=== PATIENT | female | born 1995 | race Caucasian/White ===

== ENCOUNTER 2019-05-18 12:00 | Emergency (ER) | payer OTHER ==
[2019-05-18] MEDS ORDERED: Sodium Chloride 0.9% 1,000 ML IV ONE (12:39)
[2019-05-18] MEDS ORDERED: fentaNYL 100 MCG/2 ML SDV IVPUSH ONE (12:39)
[2019-05-18 13:18] LABS: CHLORIDE,CL 105 mmol/L (98-107); SODIUM,NA 139 mmol/L (136-145)
--- NOTE | 2019-05-18 13:40 | EDM.PDOC ---
ED HPI GENERAL MEDICAL PROBLEM - General Chief Complaint: Abdominal Pain Stated Complaint: STOMACH PAIN Time Seen by Provider: 05/18/19 12:07 Source of Information: Reports: Patient History Limitations: Reports: No Limitations - History of Present Illness INITIAL COMMENTS - FREE TEXT/NARRATIVE: Presents reporting a four-day history of diarrhea and stomach cramps. She states that the diarrhea is yellow watery with chunks. She denies any ill contacts, foreign travel, camping trips and so forth. No unusual foods. She also complains of quite a bit of tenderness in the right upper quadrant and epigastric area. She has had an appendectomy. She is otherwise healthy without chronic medical problems. She is sexually active but has the Nexplanon. No dysuria. she took some ibuprofen for the cramping. - Related Data Allergies Allergy/AdvReac Type Severity Reaction Status Date / Time No Known Allergies Allergy Verified 05/18/19 12:10 Home Meds: Home Meds . 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 History: 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 Neurological History: 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 Psychiatric History: Reports: Anxiety, Depression Endocrine/Metabolic History: 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 Hematologic History: 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 Immunologic History: 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 Oncologic (Cancer) History: 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 Dermatologic History: 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 - Past Surgical History Head Surgeries/Procedures: 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 HEENT Surgical History: 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 Cardiovascular Surgical History: 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 Respiratory Surgical History: 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 GI Surgical History: Reports: Appendectomy Female Surgical History: 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 Endocrine Surgical History: 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 Neurological Surgical History: 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 Surgical History: 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 Oncologic Surgical History: 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 Dermatological Surgical History: 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 Social & Family History - Family History Family Medical History: Noncontributory - Tobacco Use Smoking Status *Q: Current Every Day Smoker Years of Tobacco use: 1 Packs/Tins Daily: 0.5 - Caffeine Use Caffeine Use: Reports: Coffee - Recreational Drug Use Recreational Drug Use: No ED ROS GENERAL - Review of Systems Review Of Systems: ROS reveals no pertinent complaints other than HPI. ED EXAM, GI/ABD - Physical Exam Exam: See Below Exam Limited By: No Limitations General Appearance: Alert, No Apparent Distress Nose: Normal Inspection Throat/Mouth: Normal Inspection Head: Atraumatic, Normocephalic Neck: Normal Inspection Respiratory/Chest: No Respiratory Distress, Lungs Clear, Normal Breath Sounds Cardiovascular: Normal Peripheral Pulses, Regular Rate, Rhythm, No Edema GI/Abdominal Exam: Soft, No Distention, Guarding, Tender (Exquisitely tender in the right upper quadrant and epigastric area as well as the upper neptali- umbilical area) Back Exam: Normal Inspection Extremities: Normal Inspection Neurological: Alert, Oriented Psychiatric: Normal Affect, Normal Mood Skin Exam: Warm, Dry, Intact, Normal Color, No Rash Lymphatic: No Adenopathy Course - Vital Signs Last Recorded V/S: Last Vital Signs Temp 35.6 C 05/18/19 12:11 Pulse 90 05/18/19 12:11 Resp 18 05/18/19 12:11 BP 189/87 H 05/18/19 12:11 Pulse Ox 96 05/18/19 12:11 - Orders/Labs/Meds Labs: Laboratory Tests 05/18/19 05/18/19 05/18/19 Range/Units 12:14 12:47 12:47 WBC 8.11 (4.0-11.0) K/uL RBC 4.76 (4.30-5.90) M/uL Hgb 14.8 (12.0-16.0) g/dL Hct 44.6 (36.0-46.0) % MCV 93.7 (80.0-98.0) fL MCH 31.1 (27.0-32.0) pg MCHC 33.2 (31.0-37.0) g/dL RDW Std Deviation 46.8 (28.0-62.0) fl RDW Coeff of Mar 14 (11.0-15.0) % Plt Count 299 (150-400) K/uL MPV 10.60 (7.40-12.00) fL Neut % (Auto) 71.9 (48.0-80.0) % Lymph % (Auto) 20.1 (16.0-40.0) % [place] % (Auto) 6.9 (0.0-15.0) % Eos % (Auto) 0.6 (0.0-7.0) % Baso % (Auto) 0.5 (0.0-1.5) % Neut # (Auto) 5.8 H (1.4-5.7) K/uL Lymph # (Auto) 1.6 (0.6-2.4) K/uL [place] # (Auto) 0.6 (0.0-0.8) K/uL Eos # (Auto) 0.1 (0.0-0.7) K/uL Baso # (Auto) 0.0 (0.0-0.1) K/uL Nucleated RBC % 0.0 /100WBC Nucleated RBCs # 0 K/uL Sodium 139 (136-145) mmol/L Potassium 3.9 (3.5-5.1) mmol/L Chloride 105 (98-107) mmol/L Carbon Dioxide 22.5 (21.0-32.0) mmol/L BUN 9 (7.0-18.0) mg/dL Creatinine 0.8 (0.6-1.0) mg/dL Est Cr Clr Drug Dosing 108.17 mL/min Estimated GFR (MDRD) > 60.0 ml/min Glucose 99 (74-106) mg/dL Calcium 9.1 (8.5-10.1) mg/dL Total Bilirubin 0.5 (0.2-1.0) mg/dL AST 17 (15-37) IU/L ALT 18 (14-63) IU/L Alkaline Phosphatase 82 (46-116) U/L Total Protein 7.9 (6.4-8.2) g/dL Albumin 4.3 (3.4-5.0) g/dL Globulin 3.6 (2.6-4.0) g/dL Albumin/Globulin Ratio 1.2 (0.9-1.6) Urine Color YELLOW Urine Appearance CLEAR Urine pH 5.5 (5.0-8.0) Ur Specific [place] 1.025 (1.001-1.035) Urine Protein NEGATIVE (NEGATIVE) mg/dL Urine Glucose (UA) NEGATIVE (NEGATIVE) mg/dL Urine Ketones NEGATIVE (NEGATIVE) mg/dL Urine Occult Blood NEGATIVE (NEGATIVE) Urine Nitrite NEGATIVE (NEGATIVE) Urine Bilirubin NEGATIVE (NEGATIVE) Urine Urobilinogen 0.2 (<2.0) EU/dL Ur Leukocyte Esterase NEGATIVE (NEGATIVE) Urine RBC 0-2 (0-2/HPF) Urine WBC 0-2 (0-5/HPF) Ur Epithelial Cells FEW (NONE-FEW) Urine Bacteria RARE (NEGATIVE) Meds: Medications Discontinued Medications Generic Name Dose Route Start Last Admin Trade Name Kaiden PRN Reason Stop Dose Admin Fentanyl 50 mcg 05/18/19 12:39 05/18/19 12:52 Sublimaze IVPUSH 05/18/19 12:40 50 mcg ONETIME ONE Administration Sodium Chloride 1,000 mls @ 999 mls/hr 05/18/19 12:39 05/18/19 12:52 Normal Saline IV 05/18/19 13:39 999 mls/hr STAT ONE Administration Departure - Departure Time of Disposition: 14:21 Disposition: Home, Self-Care 01 Clinical Impression: Gastroenteritis - Discharge Information *PRESCRIPTION DRUG MONITORING PROGRAM REVIEWED*: Not Applicable *COPY OF PRESCRIPTION DRUG MONITORING REPORT IN PATIENT YOVANI: Not Applicable Referrals: PCP,None [Primary Care Provider] - [facility] [Outside] [facility] [Outside] Forms: ED Department Discharge Additional Instructions: 1. Imodium 2 mg tablets one after each diarrheal stool up to a total of 8 tabs per day or 16 mg. OTC 2. Follow-up in primary care. You have been given a specimen cup. If your symptoms continue please bring a stool specimen with you to your appointment 3. Drink plenty of fluids 4. Return promptly for fevers, not keeping down oral fluids, new or worsening abdominal pain
--- NOTE | 2019-05-18 13:48 | US ---
EXAMINATION: Right upper quadrant ultrasound HISTORY: Tenderness COMPARISON: None TECHNIQUE: Grayscale and color Doppler imaging obtained. FINDINGS: The visualized pancreas appears normal. The liver is normal contour and echotexture without a focal hepatic mass. Gallbladder wall thickness is normal. Right kidney measures 10.2 cm [id number] without evidence of hydronephrosis. Common bile duct measures 3 mm. IMPRESSION: Unremarkable right upper quadrant ultrasound.
== END 2019-05-18 14:50 | disposition home or self-care (01) ==
LOC: MW.ED 12:00
DX: K52.9 Noninfective gastroenteritis and colitis, unspecified (principal); F17.210 Nicotine dependence, cigarettes, uncomplicated
CPT/HCPCS: 36415; 76705; 80053; 81001; 85025; 96361; 96374; 99284; J3010; J7040

== ENCOUNTER 2021-01-30 10:47 | Emergency (ER) | payer OTHER ==
[2021-01-30] MEDS ORDERED: Ondansetron 4 MG/2 ML SDV IVPUSH STA (12:59)
--- NOTE | 2021-01-30 12:59 | EDM.PDOC ---
ED HPI GENERAL MEDICAL PROBLEM - General Chief Complaint: FAMILY THERAPIST Problem Stated Complaint: PREGGERS BLOOD IN URINE Time Seen by Provider: 01/30/21 11:04 Source of Information: Reports: Patient History Limitations: Reports: No Limitations - History of Present Illness INITIAL COMMENTS - FREE TEXT/NARRATIVE: HISTORY AND PHYSICAL: History of present illness: Patient is a 25-year-old female who presents to the with vomiting for the last 5 to 6 days. She states that she noticed a small amount of blood in her vomit. On January 26 she took 2 home tests which were positive. Her last menstrual cycle was on December 18, 2020. This is her second . Her last in August 2016 ended in a miscarriage. She denies abdominal pain, vaginal bleeding, or abnormal discharge. She states that she is extremely nauseated on and has been trying to eat crackers and follow a brat diet without success. Decreased urination, but does not notice a strong odor in her urine. She is trying to make an appointment with an FAMILY THERAPIST. Patient denies any fever, chills, headache, change in vision, syncope or near syncope. Denies any chest pain, back pain, shortness of breath or cough. Denies any abdominal pain, diarrhea, constipation or dysuria. Has not noted any blood in urine or stool. Review of systems: As per history of present illness and below otherwise all systems reviewed and negative. Past medical history: As per history of present illness and as reviewed below otherwise noncontributory. Surgical history: As per history of present illness and as reviewed below otherwise noncontributory. Social history: See social history for further information Family history: As per history of present illness and as reviewed below otherwise noncontributory. Physical exam: General: Well developed and well nourished. Alert and orientated x 3. Nontoxic in appearance and in no acute distress. Vital signs are stable and have been reviewed by me. Nursing notes were reviewed. HEENT: Atraumatic, normocephalic, pupils equal and reactive bilaterally, negative for conjunctival pallor or scleral icterus, mucous membranes moist, neck supple, nontender, trachea midline. No drooling or trismus noted. No meningeal signs. No hot potato voice noted. Lungs: Clear to auscultation bilaterally. No wheezes, rales, or rhonchi. Chest nontender. Normal work of breathing, no accessory muscles used. Heart: S1S2, regular rate and rhythm without overt murmur, gallops, or rubs. No JVD. No peripheral edema Abdomen: Soft, nondistended, nontender. Normoactive bowel sounds. Negative for masses or costovertebral tenderness. Pelvis: Stable nontender. Skin: Intact, warm, dry. No lesions or rashes noted. Hematologic: No petechiae or purpra. Mucosa appropriate color and normal nail bed color and refill. Extremities: Atraumatic, moves all extremities per self without difficulty or deficits, negative for cords or calf pain. Neurovascular unremarkable. Neuro: Awake, alert, oriented. Cranial nerves II through XII unremarkable. Cerebellum unremarkable. Motor and sensory unremarkable throughout. Exam nonfocal. Psychiatric: Mood and affect are appropriate. Normal thought process. Answering questions appropriately. Notes: *This patient was seen and evaluated during the 2019 SARS-CoV-2 novel coronavirus pandemic period. Community viral transmission is ongoing at time of this encounter and the emergency department is operating under pandemic response procedures. After discussing with the patient we will start labs fluids, and Zofran for nausea. The patient is agreeable with the plan. Her exam is normal, with patient's history will order an ultrasound. Patient does feel better post Zofran and IV fluids. The ultrasound showed a live IUP, at 6 weeks 3 days. The right ovary was visualized normal size with good flow the left ovary was not visualized. I have talked with the patient about today's findings, in addition to providing specific details for plan of care. Reassessment at the time of disposition demonstrates that the patient is in no acute distress. The patient is stable for discharge, counseling was provided and we discussed in great detail signs and symptoms that would prompt them to return to the Emergency Department. Medication, follow up and supportive care measures were reviewed and discussed. Voices understanding and is agreeable to plan of care. Denies any further questions or concerns at this time. Diagnostics: UA, , CBC, CMP, US Therapeutics: IV fluids, Zofran Prescription: Diclegis 20mg at night Impression: Intrauterine Plan: 1. You were evaluated today on an emergent basis. Your labs were normal. Your ultrasound showed live intrauterine , at 6 weeks and 3 days. We will treat you with Diclegis. Need to follow-up with your FAMILY THERAPIST for further treatment. 2. You can alternate Tylenol and ibuprofen as needed for pain and fever management. 3. We encourage you to follow up with your primary care provider and/or recommended specialist in the next few days for re-evaluation and further care/management. 4. If your symptoms should worsen, new symptoms develop or any of the signs and symptoms we discussed should arise please return to the emergency room or call 911 (if needed). Definitive disposition and diagnosis as appropriate pending reevaluation and review of above. - Related Data Allergies Allergy/AdvReac Type Severity Reaction Status Date / Time No Known Allergies Allergy Verified 01/30/21 13:15 Home Meds: Home Meds ALPRAZolam [Xanax] PRN 01/30/21 [History] Doxylamine Succinate/Vit B6 [Diclegis Dr 10-10 mg Tablet] 2 each PO BEDTIME #28 tablet. 01/30/21 [Rx] Escitalopram Oxalate [Lexapro] 10 mg PO DAILY 01/30/21 [History] Past Medical History HEENT History: Reports: Impaired Vision Cardiovascular History: 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 Respiratory History: 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 Gastrointestinal History: 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 Genitourinary History: 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 FAMILY THERAPIST History: 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 History: 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 Neurological History: 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 Psychiatric History: Reports: Anxiety, Depression Endocrine/Metabolic History: 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 Hematologic History: 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 Immunologic History: 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 Oncologic (Cancer) History: 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 Dermatologic History: 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 - Past Surgical History Head Surgeries/Procedures: 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 HEENT Surgical History: 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 Cardiovascular Surgical History: 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 Respiratory Surgical History: 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 GI Surgical History: Reports: Appendectomy Female Surgical History: 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 Endocrine Surgical History: 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 Neurological Surgical History: 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 Surgical History: 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 Oncologic Surgical History: 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 Dermatological Surgical History: 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 Social & Family History - Family History Family Medical History: No Pertinent Family History - Caffeine Use Caffeine Use: Reports: Coffee ED ROS GENERAL - Review of Systems Review Of Systems: Comprehensive ROS is negative, except as noted in HPI. ED EXAM - Physical Exam Exam: See Below (See dictation) Course - Vital Signs Last Recorded V/S: Last Vital Signs Temp 96.6 F L 01/30/21 13:17 Pulse 90 01/30/21 13:17 Resp 18 01/30/21 13:17 BP 121/80 01/30/21 13:17 Pulse Ox 99 01/30/21 13:17 - Orders/Labs/Meds Labs: Laboratory Tests 01/30/21 01/30/21 01/30/21 Range/Units 11:45 11:45 13:12 WBC (4.0-11.0) K/uL RBC (4.30-5.90) M/uL Hgb (12.0-16.0) g/dL Hct (36.0-46.0) % MCV (80.0-98.0) fL MCH (27.0-32.0) pg MCHC (31.0-37.0) g/dL RDW Std Deviation (28.0-62.0) fl RDW Coeff of Mar (11.0-15.0) % Plt Count (150-400) K/uL MPV (7.40-12.00) fL Neut % (Auto) (48.0-80.0) % Lymph % (Auto) (16.0-40.0) % [place] % (Auto) (0.0-15.0) % Eos % (Auto) (0.0-7.0) % Baso % (Auto) (0.0-1.5) % Neut # (Auto) (1.4-5.7) K/uL Lymph # (Auto) (0.6-2.4) K/uL [place] # (Auto) (0.0-0.8) K/uL Eos # (Auto) (0.0-0.7) K/uL Baso # (Auto) (0.0-0.1) K/uL Nucleated RBC % /100WBC Nucleated RBCs # K/uL Sodium 137 (136-145) mmol/L Potassium 4.1 (3.5-5.1) mmol/L Chloride 103 (98-107) mmol/L Carbon Dioxide 23.5 (21.0-32.0) mmol/L BUN 9 (7.0-18.0) mg/dL Creatinine 0.7 (0.6-1.0) mg/dL Est Cr Clr Drug Dosing 117.01 mL/min Estimated GFR (MDRD) > 60.0 ml/min Glucose 90 (74-106) mg/dL Calcium 8.6 (8.5-10.1) mg/dL Total Bilirubin 0.5 (0.2-1.0) mg/dL AST 15 (15-37) IU/L ALT 22 (14-63) IU/L Alkaline Phosphatase 64 (46-116) U/L Total Protein 7.7 (6.4-8.2) g/dL Albumin 4.1 (3.4-5.0) g/dL Globulin 3.6 (2.6-4.0) g/dL Albumin/Globulin Ratio 1.1 (0.9-1.6) Urine Color DARK YELLOW Urine Appearance CLEAR Urine pH 6.0 (5.0-8.0) Ur Specific [place] >= 1.030 (1.001-1.035) Urine Protein 30 H (NEGATIVE) mg/dL Urine Glucose (UA) NEGATIVE (NEGATIVE) mg/dL Urine Ketones 15 H (NEGATIVE) mg/dL Urine Occult Blood NEGATIVE (NEGATIVE) Urine Nitrite NEGATIVE (NEGATIVE) Urine Bilirubin SMALL H (NEGATIVE) Urine Ictotest NEGATIVE Urine Urobilinogen 1.0 (<2.0) EU/dL Ur Leukocyte Esterase NEGATIVE (NEGATIVE) Urine RBC 0-2 (0-2/HPF) Urine WBC 0-3 (0-5/HPF) Ur Epithelial Cells MODERATE (NONE-FEW) Urine Bacteria FEW (NEGATIVE) Urine Mucus MODERATE (NONE-MOD) Urine HCG, Qual POSITIVE (NEGATIVE) 01/30/21 Range/Units 13:12 WBC 10.80 (4.0-11.0) K/uL RBC 4.65 (4.30-5.90) M/uL Hgb 14.9 (12.0-16.0) g/dL Hct 44.9 (36.0-46.0) % MCV 96.6 (80.0-98.0) fL MCH 32.0 (27.0-32.0) pg MCHC 33.2 (31.0-37.0) g/dL RDW Std Deviation 48.2 (28.0-62.0) fl RDW Coeff of Mar 14 (11.0-15.0) % Plt Count 283 (150-400) K/uL MPV 9.70 (7.40-12.00) fL Neut % (Auto) 78.3 (48.0-80.0) % Lymph % (Auto) 14.4 L (16.0-40.0) % [place] % (Auto) 6.9 (0.0-15.0) % Eos % (Auto) 0.2 (0.0-7.0) % Baso % (Auto) 0.2 (0.0-1.5) % Neut # (Auto) 8.5 H (1.4-5.7) K/uL Lymph # (Auto) 1.6 (0.6-2.4) K/uL [place] # (Auto) 0.8 (0.0-0.8) K/uL Eos # (Auto) 0.0 (0.0-0.7) K/uL Baso # (Auto) 0.0 (0.0-0.1) K/uL Nucleated RBC % 0.0 /100WBC Nucleated RBCs # 0 K/uL Sodium (136-145) mmol/L Potassium (3.5-5.1) mmol/L Chloride (98-107) mmol/L Carbon Dioxide (21.0-32.0) mmol/L BUN (7.0-18.0) mg/dL Creatinine (0.6-1.0) mg/dL Est Cr Clr Drug Dosing mL/min Estimated GFR (MDRD) ml/min Glucose (74-106) mg/dL Calcium (8.5-10.1) mg/dL Total Bilirubin (0.2-1.0) mg/dL AST (15-37) IU/L ALT (14-63) IU/L Alkaline Phosphatase (46-116) U/L Total Protein (6.4-8.2) g/dL Albumin (3.4-5.0) g/dL Globulin (2.6-4.0) g/dL Albumin/Globulin Ratio (0.9-1.6) Urine Color Urine Appearance Urine pH (5.0-8.0) Ur Specific [place] (1.001-1.035) Urine Protein (NEGATIVE) mg/dL Urine Glucose (UA) (NEGATIVE) mg/dL Urine Ketones (NEGATIVE) mg/dL Urine Occult Blood (NEGATIVE) Urine Nitrite (NEGATIVE) Urine Bilirubin (NEGATIVE) Urine Ictotest Urine Urobilinogen (<2.0) EU/dL Ur Leukocyte Esterase (NEGATIVE) Urine RBC (0-2/HPF) Urine WBC (0-5/HPF) Ur Epithelial Cells (NONE-FEW) Urine Bacteria (NEGATIVE) Urine Mucus (NONE-MOD) Urine HCG, Qual (NEGATIVE) Meds: Medications Discontinued Medications Generic Name Dose Route Start Last Admin Trade Name Kaiden PRN Reason Stop Dose Admin Sodium Chloride 1,000 mls @ 999 mls/hr 01/30/21 13:09 01/30/21 13:10 Normal Saline IV 01/30/21 14:09 999 mls/hr .Bolus ONE Administration Ondansetron HCl 4 mg 01/30/21 12:59 01/30/21 13:08 Ondansetron 4 Mg/2 Ml Sdv IVPUSH 01/30/21 13:00 4 mg ONETIME STA Administration Departure - Departure Time of Disposition: 14:23 Disposition: Home, Self-Care 01 Condition: Good Clinical Impression: Intrauterine - Discharge Information *PRESCRIPTION DRUG MONITORING PROGRAM REVIEWED*: Not Applicable *COPY OF PRESCRIPTION DRUG MONITORING REPORT IN PATIENT YOVANI: Not Applicable Prescriptions: Doxylamine Succinate/Vit B6 [Essence Amor 10-10 mg Tablet] 2 each PO BEDTIME #28 tablet. Instructions: Abdominal Pain During , [id number] Referrals: PCP,None [Primary Care Provider] - Forms: ED Department Discharge Additional Instructions: The following information is given to patients seen in the emergency department who are being discharged to home. This information is to outline your options for follow-up care. We provide all patients seen in our emergency department with a follow-up referral. The need for follow-up, as well as the timing and circumstances, are variable depending upon the specifics of your emergency department visit. If you don't have a primary care physician on staff, we will provide you with a referral. We always advise you to contact your personal physician following an emergency department visit to inform them of the circumstance of the visit and for follow-up with them and/or the need for any referrals to a consulting specialist. The emergency department will also refer you to a specialist when appropriate. This referral assures that you have the opportunity for follow-up care with a specialist. All of these measure are taken in an effort to provide you with optimal care, which includes your follow-up. Under all circumstances we always encourage you to contact your private physician who remains a resource for coordinating your care. When calling for follow-up care, please make the office aware that this follow-up is from your recent emergency room visit. If for any reason you are refused follow-up, please contact the [facility] Emergency Department at and asked to speak to the emergency department charge nurse. [facility] - Primary Care [address], [place] [address] [facility] [address] [place] [address] Plan: 1. You were evaluated today on an emergent basis. Your labs were normal. Your ultrasound showed live intrauterine , at 6 weeks and 3 days. We will treat you with Diclegis. Need to follow-up with your FAMILY THERAPIST for further treatment. 2. You can alternate Tylenol and ibuprofen as needed for pain and fever management. 3. We encourage you to follow up with your primary care provider and/or recommended specialist in the next few days for re-evaluation and further care/management. 4. If your symptoms should worsen, new symptoms develop or any of the signs and symptoms we discussed should arise please return to the emergency room or call 911 (if needed). Sepsis Event Note (ED) - Focused Exam Vital Signs: Vital Signs Temp Pulse Resp BP Pulse Ox 01/30/21 13:17 96.6 F L 90 18 121/80 99
[2021-01-30] MEDS ORDERED: Sodium Chloride 0.9% 1,000 ML IV ONE (13:09)
[2021-01-30 13:46] LABS: BLOOD UREA NITROGEN,BUN 9 mg/dL (7.0-18.0); CHLORIDE,CL 103 mmol/L (98-107); GLUCOSE RANDOM 90 mg/dL (74-106); POTASSIUM,K 4.1 mmol/L (3.5-5.1); SODIUM,NA 137 mmol/L (136-145)
[2021-01-30 13:49] LABS: CARBON DIOXIDE,CO2 23.5 mmol/L (21.0-32.0)
--- NOTE | 2021-01-30 15:23 | US ---
INDICATION: Excessive vomiting. First trimester scan. LMP 12/12/2020. COMPARISON: None. TECHNIQUE: Real-time frost-scale imaging of the pelvis was performed transabdominally and endovaginally. FINDINGS: A single living intrauterine is identified. The crown-rump length measures 5.3 mm, giving an estimated gestation age of 6 weeks 2 days and an estimated due date of 09/22/2021. This is consistent with clinical dates. There is a normal appearing yolk sac and gestational sac. Embryonic heart rate measures 118 beats per minutes. No subchorionic hemorrhage is identified. The cervix is closed and the myometrium appears normal. Cervix measures 3.3 cm in length. Left ovary was not visualized. Right ovary was unremarkable. There is no pelvic free fluid. IMPRESSION: Single living intrauterine . Size is consistent with dates. No free fluid. Right ovary was unremarkable. Left ovary was not visualized. Dictated by Moris Duong MD @ Jan 30 2021 3:14PM Signed by Dr. Moris Duong @ Jan 30 2021 3:21PM
== END 2021-01-30 14:49 | disposition home or self-care (01) ==
LOC: MW.ED 10:47
DX: O99.611 Diseases of the digestive system complicating pregnancy, first trimester (principal); K92.0 Hematemesis; Z3A.01 Less than 8 weeks gestation of pregnancy
CPT/HCPCS: 36415; 76801; 80053; 81001; 81025; 85025; 99284; J2405; J7030; 96374

== ENCOUNTER 2021-07-27 15:41 | Emergency (ER) | payer MEDICAID ==
--- NOTE | 2021-07-27 16:40 | EDM.PDOC ---
ED HPI GENERAL MEDICAL PROBLEM - General Chief Complaint: ENT Problem Stated Complaint: POSSIBLE SINUS INFECTION Time Seen by Provider: 07/27/21 16:26 Source of Information: Reports: Patient History Limitations: Reports: No Limitations - History of Present Illness INITIAL COMMENTS - FREE TEXT/NARRATIVE: HISTORY AND PHYSICAL: History of present illness: The patient is a 26-year-old female who presents to the emergency room with complaints of fever, sinus pain, headache, and cough for over 10 days. She had a negative COVID-19 this am. The patient has been taking Tylenol for her pain and discomfort. Patient denies any change in vision, syncope or near syncope. Denies any chest pain, back pain, or shortness of breath. Denies any abdominal pain, nausea, vomiting, diarrhea, constipation or dysuria. Has not noted any blood in urine or stool. Patient has been eating and drinking appropriately. Review of systems: As per history of present illness and below otherwise all systems reviewed and negative. Past medical history: As per history of present illness and as reviewed below otherwise noncontributory. Surgical history: As per history of present illness and as reviewed below otherwise noncontributory. Social history: See social history for further information Family history: As per history of present illness and as reviewed below otherwise nonc ontributory. Physical exam: General: Well developed and well nourished. Alert and orientated x 3. Nontoxic in appearance and in no acute distress. Vital signs are stable and have been reviewed by me. Nursing notes were reviewed. HEENT: Atraumatic, normocephalic, pupils equal and reactive bilaterally, negative for conjunctival pallor or scleral icterus, mucous membranes moist, TMs normal bilaterally, throat clear, neck supple, nontender, trachea midline. No drooling or trismus noted. No meningeal signs. No hot potato voice noted. Lungs: Clear to auscultation bilaterally. No wheezes, rales, or rhonchi. Chest nontender. Normal work of breathing, no accessory muscles used. Heart: S1S2, regular rate and rhythm without overt murmur, gallops, or rubs. No JVD. No peripheral edema Abdomen: Soft, nondistended, nontender. Normoactive bowel sounds. Negative for masses or costovertebral tenderness. Skin: Intact, warm, dry. No lesions or rashes noted. Hematologic: No petechiae or purpra. Mucosa appropriate color and normal nail bed color and refill. Extremities: Atraumatic, moves all extremities per self without difficulty or deficits, negative for cords or calf pain. Neurovascular unremarkable. Neuro: Awake, alert, oriented. Cranial nerves II through XII unremarkable. Cerebellum unremarkable. Motor and sensory unremarkable throughout. Exam nonfocal. Psychiatric: Mood and affect are appropriate. Normal thought process. Answering questions appropriately. Notes: *This patient was seen and evaluated during the 2019 SARS-CoV-2 novel coronavirus pandemic period. Community viral transmission is ongoing at time of this encounter and the emergency department is operating under pandemic response procedures. As stated above 26-year-old female who presents to the emergency room with complaints of fever, sinus pain, headache, and cough for over 10 days. She had a negative COVID-19 this am. The patient's history and examination I have diagnosed the patient with sinusitis and prescribed amoxicillin 500 mg 3 times daily for 7 days. The patient is agreeable with this plan. I have talked with the patient about today's findings, in addition to providing specific details for plan of care. Reassessment at the time of disposition demonstrates that the patient is in no acute distress. The patient is stable for discharge, counseling was provided and we discussed in great detail signs and symptoms that would prompt them to return to the Emergency Department. Medication, follow up and supportive care measures were reviewed and discussed. Voices understanding and is agreeable to plan of care. Denies any further questions or concerns at this time. Prescription:amoxicillin 500 mg 3 times daily for 7 days Impression: Sinusitis Plan: 1. You were evaluated today on an emergent basis. Your complaints of fever, sinus pain, headache, cough, was evaluated and found to be sinusitis. I have prescribed amoxicillin 500 mg 3 times daily for 7 days. Amoxicillin is safe in . For decongestants you could use a neti pot. 2. You can alternate Tylenol and ibuprofen as needed for pain and fever management. 3. We encourage you to follow up with your primary care provider and/or recommended specialist in the next few days for re-evaluation and further care/management. 4. If your symptoms should worsen, new symptoms develop or any of the signs and symptoms we discussed should arise please return to the emergency room or call 911 (if needed). Definitive disposition and diagnosis as appropriate pending reevaluation and review of above. 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 Pain Score (Numeric/FACES): 8 - Related Data Allergies Allergy/AdvReac Type Severity Reaction Status Date / Time No Known Allergies Allergy Verified 07/27/21 16:15 Home Meds: Home Meds Escitalopram Oxalate [Lexapro] 10 mg PO DAILY 01/30/21 [History] Amoxicillin 500 mg PO TID 7 Days #21 tab 07/27/21 [Rx] #103/Iron Fumarate/Fa [ ] 1 tab PO DAILY 07/27/21 [History] hydrOXYzine HCL [hydrOXYzine] 5 mg PO DAILY 07/27/21 [History] Past Medical History HEENT History: Reports: Impaired Vision Cardiovascular History: 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 Respiratory History: 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 Gastrointestinal History: 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 Genitourinary History: 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: 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 History: 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 Neurological History: 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 Psychiatric History: Reports: Anxiety, Depression, PTSD Endocrine/Metabolic History: 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 Hematologic History: 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 Immunologic History: 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 Oncologic (Cancer) History: 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 Dermatologic History: 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 - Infectious Disease History Infectious Disease History: Reports: Chicken Pox, Shingles - Past Surgical History Head Surgeries/Procedures: 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 HEENT Surgical History: 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 Cardiovascular Surgical History: 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 Respiratory Surgical History: 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 GI Surgical History: Reports: Appendectomy Female Surgical History: 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 Endocrine Surgical History: 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 Neurological Surgical History: 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 Surgical History: 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 Oncologic Surgical History: 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 Dermatological Surgical History: 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 Social & Family History - Family History Family Medical History: No Pertinent Family History - Tobacco Use Tobacco Use Status *Q: Never Tobacco User - Caffeine Use Caffeine Use: Reports: Coffee - Recreational Drug Use Recreational Drug Use: No ED ROS ENT - Review of Systems Review Of Systems: Comprehensive ROS is negative, except as noted in HPI. ED EXAM, ENT - Physical Exam Exam: See Below (See dictation) Course - Vital Signs Last Recorded V/S: Last Vital Signs Temp 97.6 F 07/27/21 16:48 Pulse 113 H 07/27/21 16:48 Resp 18 07/27/21 16:48 BP 111/70 07/27/21 16:48 Pulse Ox 99 07/27/21 16:48 Departure - Departure Time of Disposition: 16:38 Disposition: Home, Self-Care 01 Condition: Good Clinical Impression: Sinusitis Qualifiers: Sinusitis location: frontal Chronicity: acute Recurrence: non-recurrent Qualified Code(s): J01.10 - Acute frontal sinusitis, unspecified - Discharge Information *PRESCRIPTION DRUG MONITORING PROGRAM REVIEWED*: Not Applicable *COPY OF PRESCRIPTION DRUG MONITORING REPORT IN PATIENT YOVANI: Not Applicable Prescriptions: Amoxicillin 500 mg PO TID 7 Days #21 tab Instructions: Sinusitis, Adult, [id number] Referrals: Carlos Walden MD [Primary Care Provider] - Forms: ED Department Discharge Additional Instructions: The following information is given to patients seen in the emergency department who are being discharged to home. This information is to outline your options for follow-up care. We provide all patients seen in our emergency department with a follow-up referral. The need for follow-up, as well as the timing and circumstances, are variable depending upon the specifics of your emergency department visit. If you don't have a primary care physician on staff, we will provide you with a referral. We always advise you to contact your personal physician following an emergency department visit to inform them of the circumstance of the visit and for follow-up with them and/or the need for any referrals to a consulting specialist. The emergency department will also refer you to a specialist when appropriate. This referral assures that you have the opportunity for follow-up care with a specialist. All of these measure are taken in an effort to provide you with optimal care, which includes your follow-up. Under all circumstances we always encourage you to contact your private physician who remains a resource for coordinating your care. When calling for follow-up care, please make the office aware that this follow-up is from your recent emergency room visit. If for any reason you are refused follow-up, please contact the [facility] Emergency Department at and asked to speak to the emergency department charge nurse. [facility] - Primary Care [address] [place] [id number] [address] [address] Plan: 1. You were evaluated today on an emergent basis. Your plaints of fever, sinus pain, headache, cough, was evaluated and found to be sinusitis. I have prescribed amoxicillin 500 mg 3 times daily for 7 days. Amoxicillin is safe in . For decongestants you could use a neti pot. 2. You can alternate Tylenol and ibuprofen as needed for pain and fever management. 3. We encourage you to follow up with your primary care provider and/or recommended specialist in the next few days for re-evaluation and further care/management. 4. If your symptoms should worsen, new symptoms develop or any of the signs and symptoms we discussed should arise please return to the emergency room or call 11 (if needed). Sepsis Event Note (ED) - Evaluation Sepsis Screening Result: No Definite Risk
== END 2021-07-27 16:50 | disposition home or self-care (01) ==
LOC: MW.ED 15:41
DX: J01.10 Acute frontal sinusitis, unspecified (principal)
CPT/HCPCS: 99283

== ENCOUNTER 2021-09-14 22:34 | Inpatient (IN) | payer MEDICAID ==
[2021-09-14] MEDS ORDERED: Water For Irrigation,Sterile 1,000 ML Container IRR PRN (23:21)
[2021-09-14] MEDS ORDERED: Nalbuphine 10 MG/1 ML Vial IVPUSH PRN (23:21)
[2021-09-14] MEDS ORDERED: Ondansetron 4 MG/2 ML SDV IVPUSH PRN (23:21)
[2021-09-14] MEDS ORDERED: Sodium Chloride 0.9% 10 ML SDV IV PRN (23:21)
[2021-09-14] MEDS ORDERED: Lidocaine 1% 50 ML MDV INJECT PRN (23:21)
[2021-09-14] MEDS ORDERED: Methylergonovine 0.2 MG/1 ML Amp IM PRN (23:21)
[2021-09-14] MEDS ORDERED: Sodium Chloride 0.9% 10 ML Syringe FLUSH PRN (23:21)
[2021-09-14] MEDS ORDERED: Misoprostol 200 MCG Tab PO PRN (23:21)
[2021-09-14] MEDS ORDERED: Tranexamic Acid 1,000 MG in Sodium Chloride 0.9% 100 ML IV PRN (23:21)
[2021-09-14] MEDS ORDERED: Sodium Chloride 0.9% 2.5 ML Syringe FLUSH PRN (23:21)
[2021-09-14] MEDS ORDERED: Butorphanol 1 MG/ML SDV IVPUSH PRN (23:21)
[2021-09-14] MEDS ORDERED: Carboprost Tromethamine 250 MCG/1 ML Amp IM PRN (23:21)
[2021-09-14] MEDS ORDERED: Oxytocin/0.9 % Sodium Chloride 30 UNIT/500 ML BAG IV SCH (23:30)
[2021-09-15] MEDS ORDERED: ePHEDrine 50 MG/ML SDV IVPUSH PRN ×2 (00:08→01:00)
--- NOTE | 2021-09-15 00:08 | PCM.PREANE ---
Preanesthetic Assessment - Procedure Proposed Procedure: Labor Epidural - Anesthesia/Transfusion/Family Hx Anesthesia History: Prior Anesthesia Without Reaction Family History of Anesthesia Reaction: No Transfusion History: No Prior Transfusion(s) - Review of Systems General: No Symptoms Pulmonary: Other (Pt states that she vapes and her physician has identified lung nodule and CT scan is schedualed for post-) Cardiovascular: No Symptoms Gastrointestinal: Other (GERD) Neurological: No Symptoms, Other (Significant anxiety with PTSD) Other: 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 - Physical Assessment NPO Status Date: 09/14/21 NPO Status Time: 22:00 Height: 1.63 m Weight: 91.626 kg ASA Class: 2 Mental Status: Alert & Oriented x3 Airway Class: Mallampati = 2 Dentition: Reports: Normal Dentition Thyro-Mental Finger Breadths: 3 Mouth Opening Finger Breadths: 3 ROM/Head Extension: Full Lungs: Clear to Auscultation, Normal Respiratory Effort Cardiovascular: Regular Rate, Regular Rhythm - Allergies Allergies/Adverse Reactions: Allergies Allergy/AdvReac Type Severity Reaction Status Date / Time No Known Allergies Allergy Verified 09/14/21 23:02 - Blood Blood Available: Yes Product(s) Available: PRBC (Type and screen) - Anesthesia Plan Pre-Op Medication Ordered: None - Acknowledgements Anesthesia Type Planned: Epidural Pt an Appropriate Candidate for the Planned Anesthesia: Yes Alternatives and Risks of Anesthesia Discussed w Pt/Guardian: Yes Pt/Guardian Understands and Agrees with Anesthesia Plan: Yes PreAnesthesia Questionnaire HEENT History: Reports: Impaired Vision Cardiovascular History: 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 Respiratory History: 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 Gastrointestinal History: 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 Genitourinary History: 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: 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 History: 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 Neurological History: 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 Psychiatric History: Reports: Anxiety, Depression, PTSD Endocrine/Metabolic History: 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 Hematologic History: 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 Immunologic History: 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 Oncologic (Cancer) History: 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 Dermatologic History: 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 - Infectious Disease History Infectious Disease History: Reports: Chicken Pox, Shingles - Past Surgical History Head Surgeries/Procedures: 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 HEENT Surgical History: 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 Cardiovascular Surgical History: 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 Respiratory Surgical History: 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 GI Surgical History: Reports: Appendectomy Female Surgical History: 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 Endocrine Surgical History: 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 Neurological Surgical History: 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 Surgical History: 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 Oncologic Surgical History: 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 Dermatological Surgical History: 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 - HOME MEDS Home Medications: Home Meds Escitalopram Oxalate [Lexapro] 10 mg PO DAILY 01/30/21 [History] Amoxicillin 500 mg PO TID 7 Days #21 tab 07/27/21 [Rx] #103/Iron Fumarate/Fa [ ] 1 tab PO DAILY 07/27/21 [History] hydrOXYzine HCL [hydrOXYzine] 5 mg PO DAILY 07/27/21 [History] - CURRENT (IN HOUSE) MEDS Current Meds: Current Medications Butorphanol Tartrate (Butorphanol 1 Mg/Ml Sdv) 1 mg IVPUSH Q1H PRN PRN Reason: Pain (severe 7-10) Carboprost Tromethamine (Carboprost Tromethamine 250 Mcg/1 Ml Amp) 250 mcg IM ASDIRECTED PRN PRN Reason: Post Hemorrhage Lactated Ringer's (Ringers, Lactated) 1,000 mls @ 150 mls/hr IV ASDIRECTED MELISSA Oxytocin/Sodium Chloride (Oxytocin 30 Unit In Ns 0.9% 500 Ml Premix) 30 unit in 500 mls @ 500 mls/hr IV TITRATE MELISSA Tranexamic Acid 1,000 mg/ (Sodium Chloride) 110 mls @ 660 mls/hr IV ONETIME PRN PRN Reason: Bleeding Lidocaine HCl (Lidocaine 1% 50 Ml Mdv) 50 ml INJECT ONETIME PRN PRN Reason: Laceration repair Methylergonovine Maleate (Methylergonovine 0.2 Mg/1 Ml Amp) 0.2 mg IM ASDIRECTED PRN PRN Reason: Post Hemorrhage Misoprostol (Misoprostol 200 Mcg Tab) 200 mcg PO ONETIME PRN PRN Reason: Post Hemorrhage Nalbuphine HCl (Nalbuphine 10 Mg/1 Ml Vial) 10 mg IVPUSH Q1H PRN PRN Reason: Pain (severe 7-10) Ondansetron HCl (Ondansetron 4 Mg/2 Ml Sdv) 4 mg IVPUSH Q4H PRN PRN Reason: Nausea/Vomiting Sodium Chloride (Sodium Chloride 0.9% 10 Ml Syringe) 10 ml FLUSH ASDIRECTED PRN PRN Reason: Keep Vein Open Sodium Chloride (Sodium Chloride 0.9% 2.5 Ml Syringe) 2.5 ml FLUSH ASDIRECTED PRN PRN Reason: Keep Vein Open Sodium Chloride (Sodium Chloride 0.9% 10 Ml Sdv) 10 ml IV ASDIRECTED PRN PRN Reason: IV Use Sterile Water (Water For Irrigation,Sterile 1,000 Ml Container) 1,000 ml IRR ASDIRECTED PRN PRN Reason: delivery
[2021-09-15] MEDS ORDERED: Ropivacaine/PF 400 MG/200 ML PCA EPIDUR SCH ×2 (00:15→01:00)
--- NOTE | 2021-09-15 00:26 | PCM.LDHP ---
L&D History of Present Illness - General Date of Service: 09/15/21 Admit Problem/Dx: Patient Status Order with Admit Dx/Problem 09/14/21 23:20 Patient Status [ADT] Routine Admission Diagnosis/Problem Admission Diagnosis/Problem - History of Present Illness Introduction:: 26yo at 38w4d BETHANIE 09/25/2021 by LMP confirmed with 9w0d US presenting with labor. Patient reports having contractions starting around 7PM tonight. Contractions have become stronger. Denies loss of fluid or vaginal bleeding. was complicated by anxiety, symptoms stable with lexapro. Otherwise uncomplicated. - Related Data Allergies/Adverse Reactions: Allergies Allergy/AdvReac Type Severity Reaction Status Date / Time No Known Allergies Allergy Verified 09/14/21 23:02 Home Medications: Home Meds Escitalopram Oxalate [Lexapro] 10 mg PO DAILY 01/30/21 [History] Amoxicillin 500 mg PO TID 7 Days #21 tab 07/27/21 [Rx] #103/Iron Fumarate/Fa [ ] 1 tab PO DAILY 07/27/21 [History] hydrOXYzine HCL [hydrOXYzine] 5 mg PO DAILY 07/27/21 [History] Past Medical History HEENT History: Reports: Impaired Vision Cardiovascular History: 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 Respiratory History: 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 Gastrointestinal History: 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 Genitourinary History: 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: 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 Neurological History: 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 Psychiatric History: Reports: Anxiety, Depression, PTSD Endocrine/Metabolic History: 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 Hematologic History: 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 Immunologic History: 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 Oncologic (Cancer) History: 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 Dermatologic History: 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 - Infectious Disease History Infectious Disease History: Reports: Chicken Pox, Shingles - Past Surgical History Head Surgeries/Procedures: 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 HEENT Surgical History: 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 Cardiovascular Surgical History: 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 Respiratory Surgical History: 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 GI Surgical History: Reports: Appendectomy Female Surgical History: 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 Endocrine Surgical History: 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 Neurological Surgical History: 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 Surgical History: 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 Oncologic Surgical History: 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 Dermatological Surgical History: 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 Social & Family History - Family History Family Medical History: No Pertinent Family History - Caffeine Use Caffeine Use: Reports: Coffee H&P Review of Systems - Review of Systems: Review Of Systems: See Below General: Reports: No Symptoms HEENT: Reports: No Symptoms Pulmonary: Reports: No Symptoms Cardiovascular: Reports: No Symptoms Gastrointestinal: Reports: No Symptoms Genitourinary: Reports: Other (contractions) 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: Reports: No Symptoms Skin: Reports: No Symptoms Psychiatric: Reports: No Symptoms Neurological: Reports: No Symptoms Hematologic/Lymphatic: Reports: No Symptoms Immunologic: Reports: No Symptoms L&D Exam - Exam Exam: See Below - Vital Signs Weight: 202 lb - OB Specific Contraction Frequency (min): q3-4min Contraction Intensity: Moderate to Strong Movement: Active Heart Tones per Min: 120 Heart Rate (FHR) Variability: Moderate (6-25 bpm) Presentation: Vertex - Exam General: Alert, Oriented, Cooperative, Mild Distress HEENT: Conjunctiva Clear Neck: Supple, Trachea Midline Lungs: Normal Respiratory Effort GI/Abdominal Exam: Soft, Non-Tender, No Distention Genitourinary: Other (4cm dilated per patient nurse) Back Exam: Normal Inspection, Full Range of Motion Extremities: Normal Inspection, Normal Range of Motion, Non-Tender, No Pedal Edema Skin: Warm, Dry, Intact Neurological: Cranial Nerves Intact, Reflexes Equal Bilateral Psychiatric: Alert, Normal Affect, Normal Mood - Patient Data Lab Results Last 24 hrs: Laboratory Results - last 24 hr 09/14/21 Range/Units 23:35 WBC 8.17 (4.0-11.0) K/uL RBC 3.99 L (4.30-5.90) M/uL Hgb 11.3 L (12.0-16.0) g/dL Hct 34.4 L (36.0-46.0) % MCV 86.2 (80.0-98.0) fL MCH 28.3 (27.0-32.0) pg MCHC 32.8 (31.0-37.0) g/dL RDW Std Deviation 44.9 (28.0-62.0) fl RDW Coeff of Mar 14 (11.0-15.0) % Plt Count 166 (150-400) K/uL MPV 11.70 (7.40-12.00) fL Nucleated RBC % 0.0 /100WBC Nucleated RBCs # 0 K/uL Result Diagrams: 09/14/21 23:35 Problem List Initiated/Reviewed/Updated: Yes Orders Last 24hrs: Active Orders 24 hr Category Date Time Status Patient Status [ADT] Routine ADT 09/14/21 23:20 Active Communication Order [RC] PRN Care 09/15/21 00:08 Active Heart Tones [RC] CONTINUOUS Care 09/14/21 23:21 Active Non Stress Test [RC] PER UNIT ROUTINE Care 09/14/21 23:02 Active Notify Provider [RC] PRN Care 09/14/21 23:21 Active Up ad Elba [RC] ASDIRECTED Care 09/14/21 23:02 Active Vaginal Exam [RC] Click to Edit Care 09/14/21 23:02 Active Vital Signs [RC] PER UNIT ROUTINE Care 09/14/21 23:02 Active CORONAVIRUS COVID-19 CARA [MOLEC] Routine Lab 09/14/21 23:40 Received RPR (SYPHILIS SERO) W/ RFLX [REF] Routine Lab 09/14/21 23:35 Received TYPE AND SCREEN [BBK] Routine Lab 09/14/21 23:35 Received Butorphanol [Stadol] Med 09/14/21 23:21 Active 1 mg IVPUSH Q1H PRN Carboprost Tromethamine [Hemabate DS] Med 09/14/21 23:21 Active 250 mcg IM ASDIRECTED PRN Lactated Ringers [Ringers, Lactated] 1,000 ml Med 09/14/21 23:30 Active IV ASDIRECTED Lidocaine 1% [Xylocaine 1%] Med 09/14/21 23:21 Active 50 ml INJECT ONETIME PRN Methylergonovine [Methergine] Med 09/14/21 23:21 Active 0.2 mg IM ASDIRECTED PRN Nalbuphine [Nubain] Med 09/14/21 23:21 Active 10 mg IVPUSH Q1H PRN Ondansetron [Zofran] Med 09/14/21 23:21 Active 4 mg IVPUSH Q4H PRN Oxytocin/0.9 % Sodium Chloride [Oxytocin 30 Unit in NS Med 09/14/21 23:30 Active 0.9% 500 ML Premix] 30 unit in 500 ml IV TITRATE Phenylephrine HCl In 0.9% NaCl [Phenylephrine 1 MG/10 Med 09/15/21 00:08 Active ML-NS] 0.1 mg IVPUSH Q1M PRN Ropivacaine HCl/PF [Ropivacaine 0.2% STITCHDOWN THREAD LASTER 400 MG in 200 Med 09/15/21 00:15 Active ML] 400 mg EPIDUR ASDIRECTED Sodium Chloride 0.9% [Normal Saline] Med 09/14/21 23:21 Active 10 ml IV ASDIRECTED PRN Sodium Chloride 0.9% [Saline Flush] Med 09/14/21 23:21 Active 10 ml FLUSH ASDIRECTED PRN Sodium Chloride 0.9% [Saline Flush] Med 09/14/21 23:21 Active 2.5 ml FLUSH ASDIRECTED PRN Tranexamic Acid [Cyklokapron] 1,000 mg Med 09/14/21 23:21 Active Sodium Chloride 0.9% [Normal Saline] 100 ml IV ONETIME Water For Irrigation,Sterile [Sterile Water for Med 09/14/21 23:21 Active Irrigation] 1,000 ml IRR ASDIRECTED PRN ePHEDrine [ePHEDrine sulfate] Med 09/15/21 00:08 Active 10 mg IVPUSH Q1M PRN miSOPROStoL [Cytotec] Med 09/14/21 23:21 Active 200 mcg PO ONETIME PRN Scalp Electrode [WOMSER] Per Unit Routine Oth 09/14/21 23:21 Ordered Peripheral IV Insertion Adult [OM.PC] Routine Oth 09/14/21 23:21 Ordered Resuscitation Status Routine Resus Stat 09/14/21 23:02 Ordered Medication Orders Butorphanol Tartrate (Butorphanol 1 Mg/Ml Sdv) 1 mg IVPUSH Q1H PRN PRN Reason: Pain (severe 7-10) Carboprost Tromethamine (Carboprost Tromethamine 250 Mcg/1 Ml Amp) 250 mcg IM ASDIRECTED PRN PRN Reason: Post Hemorrhage Ephedrine Sulfate (Ephedrine 50 Mg/Ml Sdv) 10 mg IVPUSH Q1M PRN PRN Reason: Hypotension Lactated Ringer's (Ringers, Lactated) 1,000 mls @ 150 mls/hr IV ASDIRECTED [facility] Last Admin: 09/15/21 00:00 Dose: 999 mls/hr Documented by: JENNI Oxytocin/Sodium Chloride (Oxytocin 30 Unit In Ns 0.9% 500 Ml Premix) 30 unit in 500 mls @ 500 mls/hr IV TITRATE [facility] Tranexamic Acid 1,000 mg/ (Sodium Chloride) 110 mls @ 660 mls/hr IV ONETIME PRN PRN Reason: Bleeding Lidocaine HCl (Lidocaine 1% 50 Ml Mdv) 50 ml INJECT ONETIME PRN PRN Reason: Laceration repair Methylergonovine Maleate (Methylergonovine 0.2 Mg/1 Ml Amp) 0.2 mg IM ASDIRECTED PRN PRN Reason: Post Hemorrhage Miscellaneous Medication (Phenylephrine Hcl In 0.9% Nacl 1 Mg/10 Ml Syringe) 0.1 mg IVPUSH Q1M PRN PRN Reason: Hypotension Misoprostol (Misoprostol 200 Mcg Tab) 200 mcg PO ONETIME PRN PRN Reason: Post Hemorrhage Nalbuphine HCl (Nalbuphine 10 Mg/1 Ml Vial) 10 mg IVPUSH Q1H PRN PRN Reason: Pain (severe 7-10) Ondansetron HCl (Ondansetron 4 Mg/2 Ml Sdv) 4 mg IVPUSH Q4H PRN PRN Reason: Nausea/Vomiting Ropivacaine (Ropivacaine/Pf 400 Mg/200 Ml Hospice Coordinator) 400 mg EPIDUR ASDIRECTED MELISSA Sodium Chloride (Sodium Chloride 0.9% 10 Ml Syringe) 10 ml FLUSH ASDIRECTED PRN PRN Reason: Keep Vein Open Sodium Chloride (Sodium Chloride 0.9% 2.5 Ml Syringe) 2.5 ml FLUSH ASDIRECTED PRN PRN Reason: Keep Vein Open Sodium Chloride (Sodium Chloride 0.9% 10 Ml Sdv) 10 ml IV ASDIRECTED PRN PRN Reason: IV Use Sterile Water (Water For Irrigation,Sterile 1,000 Ml Container) 1,000 ml IRR ASDIRECTED PRN PRN Reason: delivery Assessment/Plan Comment:: 26yo at 38w4d presenting with early labor, regular contractions with cervical change from 3 to 4cm after arriving in triage. - will admit patient for labor - labs CBC, T&S, RPR, COVID19 test - Cat 1 tracing - GBS negative - Desires epidural for pain Expectant management. Anticipate vaginal delivery.
[2021-09-15] MEDS ORDERED: Ropivacaine HCl/PF 200 ML ONE (00:48)
[2021-09-15] MEDS: Lactated Ringers 1,000 ML IV SCH ×2 (00:51)
--- NOTE | 2021-09-15 01:04 | PCM.SN.2 ---
Time Documentation - Pre-Procedure Checklist Attending Provider Aware: Yes Chart Reviewed: Yes Consent Signed: Yes Labs Reviewed: Yes VS/FHR Reviewed: Yes Patient Identification Confirmation Method: Reports: Chart Visual, Verbal Patient Pt an Appropriate Candidate for the Planned Anesthesia: Yes Alternatives and Risks of Anesthesia Discussed w Pt/Guardian: Yes - Procedure Procedure Start Date: 09/15/21 Procedure Start Time: 00:[address]: Reports: Blood Pressure, Heart Rate, SPO2 Functional IV: Yes Bolus Infused (fluid type and amount): 1000 lr Safety Measures: Reports: Patient Identified, Procedure Verified, Site Verified, Procedure Time Out Patient Position: Reports: Sitting Prep: Reports: Betadine x3 Local Anesthetic: Reports: Intradermal Wheal w Lidocaine 1% (3 ml) Regional Placement Level: Reports: L3-4 Needle: Reports: 17 g Touhy Approach: Reports: Midline Technique: Reports: TONI Glass Syringe TONI Needle Depth (cm): 6 cm Parasthesia: 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 Fluid Obtained: 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 Catheter Depth at Skin (cm): 14 cm Test Dose Time: 00:44 Test Dose Medication: Reports: Lidocaine 1.5% w Epinephrine 1:200,000 (5 ml) Test Dose Response: Reports: Negative Loading Dose Time: 00:52 Loading Dose Medication: Ropivicaine 0.2% Loading Dose Patient Position: Supine Continuous Infusion Start Time: 00:53 Continuous Infusion Medication: Ropivicaine 0.2% Continuous Infusion Rate: 12 Continuous Infusion PCS Bolus Option: 6 Continuous Infusion Lockout Dose (cc/hr): 15 Patient Position Post Placement: Reports: Supline/PAMELA Post-procedure Pain Level: 3 Level Achieved: T4 VS and FHR Monitored in Unit Post Placement: Yes Procedure End Date: 09/15/21 Procedure End Time: 01:30 Procedure Comment: Sterile technique used throughout
--- NOTE | 2021-09-15 01:04 | PCM.POSTAN ---
POST ANESTHESIA ASSESSMENT - MENTAL STATUS Mental Status: Alert, Oriented - RESPIRATORY Respiratory Status: Respiratory Rate WNL, Airway Patent, O2 Saturation Stable - CARDIOVASCULAR CV Status: Pulse Rate WNL, Blood Pressure Stable - GASTROINTESTINAL GI Status: No Symptoms - PAIN Pain Score: 3 - POST OP HYDRATION Hydration Status: Adequate & Stable
[2021-09-15] MEDS ORDERED: ePHEDrine 50 MG/ML SDV ONE (01:13)
[2021-09-15] MEDS ORDERED: Witch Hazel Medicated Pads 40/Jar TOP PRN (10:48)
[2021-09-15] MEDS ORDERED: Lanolin 100% Cream 7 GM Tube TOP PRN (10:48)
[2021-09-15] MEDS ORDERED: Ibuprofen 400 MG Tab PO PRN (10:48)
[2021-09-15] MEDS ORDERED: oxyCODONE 5 MG Tab PO PRN (10:48)
[2021-09-15] MEDS ORDERED: Docusate Sodium 100 MG Cap PO PRN (10:48)
[2021-09-15] MEDS ORDERED: Benzocaine/Menthol 20%-0.5% Spray 78 GM Cannister TOP PRN (10:48)
[2021-09-15] MEDS ORDERED: Acetaminophen 500 MG Tab PO PRN ×2 (10:48)
[2021-09-15] MEDS ORDERED: Bisacodyl 10 MG Supp RECTAL PRN (10:48)
[2021-09-15] MEDS: Ibuprofen 800 MG Tab PO PRN ×2 (11:20→17:23)
--- NOTE | 2021-09-15 12:29 | PCM48HPAN ---
Post Anesthesia Note - EVALUATION WITHIN 48HRS OF ANESTHETIC Vital Signs in Normal Range: Yes Patient Participated in Evaluation: Yes Respiratory Function Stable: Yes Airway Patent: Yes Cardiovascular Function Stable: Yes Hydration Status Stable: Yes Pain Control Satisfactory: Yes Nausea and Vomiting Control Satisfactory: Yes Mental Status Recovered: Yes Vital Signs: Last Vital Signs Temp 36.2 C 09/15/21 11:45 Pulse 74 09/15/21 11:45 Resp 16 09/15/21 11:45 BP 123/72 09/15/21 11:45 Pulse Ox 97 09/15/21 11:45 - COMMENTS/OBSERVATIONS Free Text/Narrative:: Patient visited in room and states that epidural provided adequate analgesia for labor and deliver. Patient denies signs and symptoms of infection or neurological compromise and states to being up walking with no residual weakness.
--- NOTE | 2021-09-15 12:49 | OR ---
SURGEON: Aguilar Talbot MD DATE OF PROCEDURE: 09/15/2021 INDICATION FOR PROCEDURE: 26-year-old G2, P0-0-1-0, at 38 weeks and 4 days presented with early labor. Patient reports having contractions starting around 7 p.m. tonight and they became regular and stronger. She presented to Labor and Delivery and progressed to 3 to 4 cm while in triage and was admitted for early labor. She is GBS negative. Her was complicated by anxiety which she was started on antidepressants with good control of the symptoms. Otherwise she had an uncomplicated . Patient desired an epidural which she received with good pain control. She then had rupture of membranes with meconium-stained fluid. The tracing was category 1. She progressed gradually to fully dilated within the next few hours with the urge to push. PREOPERATIVE DIAGNOSES: 1. Rivera intrauterine at 38 weeks and 4 days. 2. Active stage of labor. POSTOPERATIVE DIAGNOSES: 1. Rivera intrauterine at 38 weeks and 4 days. 2. Active stage of labor. PROCEDURE PERFORMED: Normal spontaneous vaginal delivery, repair of first-degree laceration. ANESTHESIA: Epidural. FINDINGS: Viable female infant. score of 7 and 8. weight of 3100g. ESTIMATED BLOOD LOSS: 300 mL. DESCRIPTION OF PROCEDURE: After the patient began pushing with contractions, it was noted she still had a forebag with bulging fluid. AROM was performed with a good amount of fluid. The head descent to +2 station. She then continued to push in the next 30 minutes. The head delivered in occiput anterior position over intact perineum, restituted ROT. Anterior shoulder delivered easily followed by posterior shoulder and remaining body. No nuchal cord was noted. The baby was placed on maternal chest and evaluated by awaiting nursery staff. The baby was pink, crying, and moving all extremities quickly after delivery. Umbilical cord was clamped and cut after 3min and no longer pulsating. The umbilical cord gases were obtained. The placenta was removed with gentle traction on the umbilical cord. It was examined to be intact with 3-vessel cord. Vagina and perineum were examined. She had a first- degree laceration which was repaired with 3-0 Vicryl in usual fashion. Hemostasis was confirmed after the repair. Fundal massage was performed and her fundus was firm and below the umbilicus. Bleeding was light. The patient tolerated the procedure well, was given care instructions. ZOE ROBERTS /[id number] GAYLE
[2021-09-16] MEDS: Ibuprofen 800 MG Tab PO PRN (06:17)
--- NOTE | 2021-09-16 10:55 | PCM.PNPP ---
- General Info Date of Service: 09/16/21 Admission Dx/Problem (Free Text): Patient Status Order with Admit Dx/Problem 09/14/21 23:20 Patient Status [ADT] Routine Admission Diagnosis/Problem Admission Diagnosis/Problem Subjective Update: Patient seen at bedside , she denies any complains Normal lochia Functional Status: Reports: Pain Controlled, Tolerating Diet, Ambulating, Urinating - Review of Systems General: Reports: No Symptoms HEENT: Reports: No Symptoms Pulmonary: Reports: No Symptoms Cardiovascular: Reports: No Symptoms Gastrointestinal: Reports: No Symptoms Genitourinary: Reports: No Symptoms 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: Reports: No Symptoms Skin: Reports: No Symptoms Neurological: Reports: No Symptoms Psychiatric: Reports: No Symptoms - General Info Date of Service: 09/16/21 - Patient Data Vital Signs - Most Recent: Last Vital Signs Temp 36.4 C 09/16/21 08:00 Pulse 68 09/16/21 08:00 Resp 18 09/16/21 08:00 BP 109/57 L 09/16/21 08:00 Pulse Ox 99 09/16/21 08:00 Weight - Most Recent: 91.626 kg Lab Results - Last 24 Hours: Laboratory Results - last 24 hr 09/15/21 09/16/21 Range/Units 06:58 05:45 Hgb 10.4 L (12.0-16.0) g/dL Hct 32.4 L (36.0-46.0) % Cord ABG pH 7.340 (7.18-7.38) Cord ABG Base Excess -4 (-10--2) Cord VBG pH 7.354 (7.25-7.45) Cord VBG Base Excess -5 (-10--2) Med Orders - Current: Current Medications Acetaminophen (Acetaminophen 500 Mg Tab) 500 mg PO Q4H PRN PRN Reason: Pain (mild 1-3) Acetaminophen (Acetaminophen 500 Mg Tab) 1,000 mg PO Q4H PRN PRN Reason: Pain (mild 1-3) Benzocaine/Menthol (Benzocaine/Menthol 20%-0.5% Cullen 78 Gm Cannister) 78 gm TOP ASDIRECTED PRN PRN Reason: Perineal Comfort Measure Bisacodyl (Bisacodyl 10 Mg Supp) 10 mg RECTAL ONETIME PRN PRN Reason: Constipation Butorphanol Tartrate (Butorphanol 1 Mg/Ml Sdv) 1 mg IVPUSH Q1H PRN PRN Reason: Pain (severe 7-10) Carboprost Tromethamine (Carboprost Tromethamine 250 Mcg/1 Ml Amp) 250 mcg IM ASDIRECTED PRN PRN Reason: Post Hemorrhage Docusate Sodium (Docusate Sodium 100 Mg Cap) 100 mg PO Q12H PRN PRN Reason: Constipation Last Admin: 09/15/21 21:25 Dose: 100 mg Documented by: Emollient Ointment (Lanolin 100% Cream 7 Gm Tube) 0 gm TOP ASDIRECTED PRN PRN Reason: Sore Nipples Ephedrine Sulfate (Ephedrine 50 Mg/Ml Sdv) 10 mg IVPUSH Q1M PRN PRN Reason: Hypotension Lactated Ringer's (Ringers, Lactated) 1,000 mls @ 150 mls/hr IV ASDIRECTED MELISSA Last Admin: 09/15/21 00:51 Dose: 999 mls/hr Documented by: Oxytocin/Sodium Chloride (Oxytocin 30 Unit In Ns 0.9% 500 Ml Premix) 30 unit in 500 mls @ 500 mls/hr IV TITRATE [facility] Last Infusion: 09/15/21 07:02 Dose: 500 mls/hr Documented by: Tranexamic Acid 1,000 mg/ (Sodium Chloride) 110 mls @ 660 mls/hr IV ONETIME PRN PRN Reason: Bleeding Ibuprofen (Ibuprofen 400 Mg Tab) 400 mg PO Q4H PRN PRN Reason: Pain (mild 1-3) Ibuprofen (Ibuprofen 800 Mg Tab) 800 mg PO Q6H PRN PRN Reason: Cramping Last Admin: 09/16/21 06:17 Dose: 800 mg Documented by: Lidocaine HCl (Lidocaine 1% 50 Ml Mdv) 50 ml INJECT ONETIME PRN PRN Reason: Laceration repair Methylergonovine Maleate (Methylergonovine 0.2 Mg/1 Ml Amp) 0.2 mg IM ASDIRECTED PRN PRN Reason: Post Hemorrhage Miscellaneous Medication (Phenylephrine Hcl In 0.9% Nacl 1 Mg/10 Ml Syringe) 0.1 mg IVPUSH Q1M PRN PRN Reason: Hypotension Misoprostol (Misoprostol 200 Mcg Tab) 200 mcg PO ONETIME PRN PRN Reason: Post Hemorrhage Nalbuphine HCl (Nalbuphine 10 Mg/1 Ml Vial) 10 mg IVPUSH Q1H PRN PRN Reason: Pain (severe 7-10) Ondansetron HCl (Ondansetron 4 Mg/2 Ml Sdv) 4 mg IVPUSH Q4H PRN PRN Reason: Nausea/Vomiting Oxycodone HCl (Oxycodone 5 Mg Tab) 5 mg PO Q2H PRN PRN Reason: Pain (severe 7-10) Ropivacaine (Ropivacaine/Pf 400 Mg/200 Ml Metal Bonder) 400 mg EPIDUR ASDIRECTED MELISSA Sodium Chloride (Sodium Chloride 0.9% 10 Ml Syringe) 10 ml FLUSH ASDIRECTED PRN PRN Reason: Keep Vein Open Sodium Chloride (Sodium Chloride 0.9% 2.5 Ml Syringe) 2.5 ml FLUSH ASDIRECTED PRN PRN Reason: Keep Vein Open Sodium Chloride (Sodium Chloride 0.9% 10 Ml Sdv) 10 ml IV ASDIRECTED PRN PRN Reason: IV Use Sterile Water (Water For Irrigation,Sterile 1,000 Ml Container) 1,000 ml IRR ASDIRECTED PRN PRN Reason: delivery Witch Sophia (Witch Sophia Medicated Pads 40/Jar) 1 pad TOP ASDIRECTED PRN PRN Reason: comfort care Discontinued Medications Ephedrine Sulfate (Ephedrine 50 Mg/Ml Sdv) Confirm Administered Dose 50 mg .ROUTE .STK-MED ONE Stop: 09/15/21 01:14 Ropivacaine (Naropin 0.2%) Confirm Administered Dose 200 mls @ as directed .ROUTE .STK-MED ONE Stop: 09/15/21 00:49 - Recovery Exam Fundal Tone: Firm Fundal Level: 2 Fingerbreadths Below Umbilicus Fundal Placement: Midline Lochia Amount: Scant Lochia Color: Rubra/Red Perineum Description: Intact, Minimal Bruising/Swelling, Other (see below) Other Perinuem Description: 1st degree laceration Episiotomy/Laceration: Approximated Bladder Status: Voiding - Exam General: Alert HEENT: Pupils Equal Neck: Supple Lungs: Clear to Auscultation Cardiovascular: Regular Rate, Regular Rhythm GI/Abdominal Exam: Normal Bowel Sounds Extremities: Normal Inspection Neurological: No New Focal Deficit Psy/Mental Status: Alert - Problem List & Annotations (1) Vaginal delivery SNOMED Code(s): 185875315 Code(s): O80 - ENCOUNTER FOR FULL-TERM UNCOMPLICATED DELIVERY Status: Acute Current Visit: Yes - Problem List Review Problem List Initiated/Reviewed/Updated: Yes - Assessment Assessment:: 26yo s/p PPD 1 , Normal lochia - Plan Plan:: Routine Discharge home today
== END 2021-09-16 11:28 | disposition home or self-care (01) | DRG 807 ==
LOC: MW.OBCHECK 22:34 → MW.OB 22:35 → MW.OBCHECK 23:20 → OBSVTOIN 09-15 06:58 → MW.OB 09-15 15:28
PROVIDERS: ADMIT Obstetrics & Gynecology; ATTEND Obstetrics & Gynecology
PROC: 10E0XZZ Delivery of Products of Conception, External Approach (ICD-10-PCS; principal; 2021-09-15)
PROC: 0HQ9XZZ Repair Perineum Skin, External Approach (ICD-10-PCS; 2021-09-15)
PROC: 3E0R3BZ Introduction of Anesthetic Agent into Spinal Canal, Percutaneous Approach (ICD-10-PCS; 2021-09-15)
PROC: 00HU33Z Insertion of Infusion Device into Spinal Canal, Percutaneous Approach (ICD-10-PCS; 2021-09-15)
DX: O99.344 Other mental disorders complicating childbirth (principal); Z37.0 Single live birth; Z3A.38 38 weeks gestation of pregnancy; F32.A Depression, unspecified; F41.9 Anxiety disorder, unspecified; O77.0 Labor and delivery complicated by meconium in amniotic fluid; Z20.822 Contact with and (suspected) exposure to COVID-19
CPT/HCPCS: 01967; 36415; 59025; 59409; 82803; 85014; 85018; 85027; 86592; 86850; 86900; 86901; A9270-GY; J2590; J2795; J7120; U0002

== ENCOUNTER 2022-01-21 13:08 | Emergency (ER) | payer MEDICAID ==
[2022-01-21] MEDS ORDERED: Ketorolac 60 MG/2 ML SDV IM ONE (14:16)
== END 2022-01-21 15:56 | disposition home or self-care (01) ==
LOC: MW.ED 13:08
DX: S79.912A Unspecified injury of left hip, initial encounter (principal); W01.0XXA Fall on same level from slipping, tripping and stumbling without subsequent striking against object, initial encounter; Y92.002 Bathroom of unspecified non-institutional (private) residence as the place of occurrence of the external cause
CPT/HCPCS: 36415; 72100; 73502; 84703; 96372; 99283; J1885

== ENCOUNTER 2022-05-22 17:40 | Emergency (ER) | payer MEDICAID ==
[2022-05-22] MEDS ORDERED: Sodium Chloride 0.9% 1,000 ML IV ONE (18:47)
[2022-05-22] MEDS ORDERED: Ondansetron 4 MG/2 ML SDV IVPUSH ONE (18:47)
[2022-05-22] MEDS ORDERED: Sodium Chloride 0.9% 10 ML Syringe FLUSH PRN (18:47)
[2022-05-22] MEDS ORDERED: Sodium Chloride 0.9% 2.5 ML Syringe FLUSH PRN (18:47)
[2022-05-22 19:30] LABS: CARBON DIOXIDE,CO2 24.3 mmol/L (21.0-32.0); POTASSIUM,K 3.9 mmol/L (3.5-5.1)
[2022-05-22] MEDS ORDERED: Iopamidol 755 MG/ML 500 ML Multipack Bottle IVPUSH ONE (20:03)
[2022-05-22] MEDS ORDERED: Nitrofurantoin Monohydrate/Macrocrystalline 100 MG Cap PO STA (21:04)
== END 2022-05-22 21:39 | disposition home or self-care (01) ==
LOC: MW.ED 17:40
DX: N39.0 Urinary tract infection, site not specified (principal); R11.10 Vomiting, unspecified; F17.210 Nicotine dependence, cigarettes, uncomplicated
CPT/HCPCS: 36415; 74177; 80053; 81001; 81025; 83690; 83735; 85025; 87086; 96361; 96374; 99284; A9270; J2405; J3490; J7030; Q9967